=== PATIENT | male | born 1990 | race Two or more races ===

== ENCOUNTER 2019-08-07 13:11 | Emergency (ER) | payer MEDICAID ==
[~2019-08-07] VITALS: Ht 172.7 cm; Wt 54.5 kg
[~2019-08-07 13:11] MED LIST: PANT-47 PO
[2019-08-07] MEDS ORDERED: AZIT250T83 PO (13:48)
[2019-08-07 14:13] VITALS: BP 114/79
== END 2019-08-07 14:14 | disposition home or self-care (01) ==
LOC: ER 13:12
DX: J20.9 Acute bronchitis, unspecified (principal); K21.9 Gastro-esophageal reflux disease without esophagitis; F10.99 Alcohol use, unspecified with unspecified alcohol-induced disorder; F12.90 Cannabis use, unspecified, uncomplicated; Z79.899 Other long term (current) drug therapy; Y90.9 Presence of alcohol in blood, level not specified
CPT/HCPCS: 99283

== ENCOUNTER 2024-02-20 23:04 | Emergency (ER) | payer MEDICAID ==
[~2024-02-20] VITALS: Ht 172.7 cm; Wt 59.1 kg
[2024-02-20 23:20] VITALS: BP 100/79
[2024-02-20] MEDS ORDERED: NICO-687 TOP (23:58)
[2024-02-21 00:16] VITALS: PULSE 77; RESP 14; TEMP 98.7; O2SAT 99
== END 2024-02-21 00:18 | disposition home or self-care (01) ==
LOC: ER 23:04
DX: Z02.89 Encounter for other administrative examinations (principal); K21.9 Gastro-esophageal reflux disease without esophagitis; Z72.89 Other problems related to lifestyle; F12.90 Cannabis use, unspecified, uncomplicated; Z79.899 Other long term (current) drug therapy
CPT/HCPCS: 99281

== ENCOUNTER 2024-04-15 02:23 | Emergency (ER) | payer MEDICAID ==
[~2024-04-15] VITALS: Ht 170.2 cm; Wt 62.7 kg
[2024-04-15 02:29] VITALS: BP 127/71; PULSE 107; RESP 17; TEMP 97.6; O2SAT 100
== END 2024-04-15 04:13 | disposition home or self-care (01) ==
LOC: ER 02:24
DX: T16.2XXA Foreign body in left ear, initial encounter (principal); F12.90 Cannabis use, unspecified, uncomplicated; K21.9 Gastro-esophageal reflux disease without esophagitis; Z79.899 Other long term (current) drug therapy; Z72.89 Other problems related to lifestyle; W44.F2XA Rubber band entering into or through a natural orifice, initial encounter; Y93.89 Activity, other specified; Y92.89 Other specified places as the place of occurrence of the external cause; Y99.8 Other external cause status
CPT/HCPCS: 69200; 99284

== ENCOUNTER 2024-04-29 23:20 | Emergency (ER) | payer MEDICAID ==
[~2024-04-29] VITALS: Ht 170.2 cm; Wt 60.2 kg
[2024-04-29 23:22] VITALS: BP 119/92; PULSE 102; RESP 16; TEMP 98; O2SAT 100
== END 2024-04-30 00:28 | disposition left against medical advice (07) ==
LOC: ER 23:21
DX: G47.9 Sleep disorder, unspecified (principal); Z53.21 Procedure and treatment not carried out due to patient leaving prior to being seen by health care provider